=== PATIENT | male | born 1945 | race Caucasian/White ===

== ENCOUNTER 2024-04-19 08:25 | Day surgery (SDC) | payer MEDICARE, BC, SELFPAY ==
[2024-04-08 10:11] VITALS: BMI 31.3
[2024-04-19] VITALS (9 sets, daily range): BP systolic 128–163; BP diastolic 61–84; BMI 30.8
[2024-04-19 09:21] LABS: Glucose - Point of Care 150 mg/dl (70-99)
[2024-04-19 11:39] LABS: ACT-LR - POC 345 Seconds (116-155)
[2024-04-19 11:45] LABS: Glucose - Point of Care 119 mg/dl (70-99)
[2024-04-19 12:04] LABS: ACT-LR - POC 327 Seconds (116-155)
[2024-04-19] MEDS: TYLENOL 650 MG PO (13:50)
[2024-04-19 13:55] LABS: Glucose - Point of Care 138 mg/dl (70-99)
--- NOTE | 2024-04-19 16:02 | W.PN.UPDATE ---
Update Note
Progress Note Update
Pt seen post PFA. Right groin site without ht/bleeding, vascade closure. OOB ambulating, urinating without difficulty. 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 Resume eliquis tonight at usual time. Continue other meds as before. Followup at [facility] as
scheduled. Home today if groin site/tele remain stable.
--- NOTE | 2024-04-19 16:32 | ITS.CL.ABL ---
Tufting Machine Fixer - Ablation
Ablation
Procedure Report:
ELECTROPHYSIOLOGIC STUDY AND POSSIBLE ABLATION
DATE: April 19, 2024
Primary Care Provider: Dr. Erma Mena
INDICATION:
Symptomatic Atrial Fibrillation.
Paroxysmal
HISTORY: See H and P.
Symptomatic AF, poorly controlled with attempted medical therapy.
He has a history of HFrEF and is on guideline directed medical therapy (carvedilol, Entresto, spironolactone) as well as diuretic therapy for volume control, bumetanide.�
He has previously followed elsewhere and was initially treated with a single chamber permanent pacemaker May 2020 then upgraded to to include a right atrial lead as well as a left ventricular lead for cardiac resynchronizatio (Medtronic SLEEPER CUTTER-P)
He reports that initially he experienced severe reduction left ventricular systolic function but with continued medical therapy and upgrade to cardiac resynchronization his ejection fraction has improved to 'near normal'
He has atrial fibrillation, has required cardioversion.� Evaluation of thoracic impedances show that while he was in atrial fibrillation he had low thoracic impedance suggestive of fluid overload but since he is maintained sinus rhythm this has
resolved.
HAS-BLED:
Age
CHADSVASc: 4
CHF
Age
DM
PRESENTING RHYTHM: AV paced
HISTORY: See H and P.
Symptomatic AF, poorly controlled with attempted medical therapy.
ANTICOAGULATION: Apixaban
'TIME-OUT': called and confirmed.
SEDATION/ANESTHESIA: provided via the anesthesia department using general anesthesia.
PROCEDURE:
Ultrasound Guidance performed by az was utilized for femoral venous Vascular Access b/l.
A decapolar CS catheter was placed within the CS for mapping and pacing.
The intracardiac ultrasound catheter was positioned in the RA for continuous intracardiac ultrasound imaging.
Heparin bolus and infusion to target ACT at 300 -350 seconds was administered. Transseptal puncture was performed. This entailed advancing a sheath with dilator into the superior vena cava and withdrawing both (monitoring intracardiac ultrasound,
fluoroscopy and tip pressure) with the tip oriented toward the atrial septum. The fossa ovalis was engaged (indicated by sudden displacement of the sheath tip as well as tenting of the fossa seen on intracardiac ultrasound).
AcQCross transseptal system was used. Left atrial catheter position was confirmed by echocardiographic imaging, pressure monitoring (LA mean pressure 10 mm Hg) and fluoroscopy. The sheath was advanced over the dilator and positioned in the left
atrium.
The multipolar mapping catheter was initially positioned through the transseptal sheath for high density mapping.
Geometry and voltage mapping was performed using the Gandara multipolar grid catheter. Navex was utilized for three-dimensional electroanatomical mapping.
A 3-D map was created using Navex. A 3-D reconstructed CT image was compared to the 3-D Navex map to assist in anatomic evaluation, mapping and ablation.
The Mobovivo Pulse Select PFA catheter and system was used for cardiac ablation. Catheter positioning was guided and confirmed using both I.C.E. and fluoroscopy.
PV isolation approach was used to electrically isolate each PV ostia. Additional energy applications/additional ablation set was required to accomplish both wide area circumferential ablation around each of the pulmonary vein sets and also
electrically isolate the posterior wall of the left atrium.
Remapping with the Gandara multipolar grid catheter found entrance and exit block at the pulmonary veins ostially, and a wide area circumferential fashion and isolation of the posterior wall of the left atrium. There are 4 pulmonary veins, LSPV,
LIPV, RSPV, RIPV.
I.C.E. :
Pre-Ablation Post-Ablation
LVEF: 45-50 % 45-50 %
WMA: none none
Pericardial effusion: none none
Additionally, there is interrogation of the Medtronic SLEEPER CUTTER pacemaker both at the beginning and at the end of the study. At the end of the study once all catheters were removed there is no change in fluoroscopic appearance of the leads and there is
stable normal function of the permanent pacemaker and lead system. Lead impedances for the atrium, right ventricle and left ventricle are 399, 608 and 475 ohms respectively. Pacing threshold in the atrium is 0.5 V at 0.4 ms and in the right
ventricle is 0.875 V at 0.4 ms. Sensed P waves are 1.5 mV and sensed R waves are 11.1 mV. Pacing mode is DDDR 60-130.
COMPLICATIONS:
None
SUMMARY:
- Mapping and ablation to isolate the PVs
- Additional AF ablation set after PVI (WACA and LA post wall ablation).
- 3-D Electroanatomical Mapping
- Intracardiac Ultrasound
-Interrogation and reprogramming of multichamber permanent pacemaker, SLEEPER CUTTER-P (Medtronic)
RECOMMENDATIONS:
- Observe in monitored bed.
- Maintain oral anticoagulation.
- Office visit with me in 3 months.
Copy to:
Dr. Erma Mena
== END 2024-04-19 15:45 | disposition home or self-care (01) ==
LOC: CATH 08:25
PROVIDERS: ATTENDING PHYSICIAN Internal Medicine Cardiovascular Disease
DX: I48.0 Paroxysmal atrial fibrillation (principal); I50.22 Chronic systolic (congestive) heart failure; Z95.0 Presence of cardiac pacemaker; I42.9 Cardiomyopathy, unspecified; I13.0 Hypertensive heart and chronic kidney disease with heart failure and stage 1 through stage 4 chronic kidney disease, or unspecified chronic kidney disease; E78.5 Hyperlipidemia, unspecified; E66.9 Obesity, unspecified; Z68.31 Body mass index [BMI] 31.0-31.9, adult; I35.0 Nonrheumatic aortic (valve) stenosis; E11.22 Type 2 diabetes mellitus with diabetic chronic kidney disease; Z79.84 Long term (current) use of oral hypoglycemic drugs; G47.33 Obstructive sleep apnea (adult) (pediatric); Z85.46 Personal history of malignant neoplasm of prostate; N40.0 Benign prostatic hyperplasia without lower urinary tract symptoms; H91.90 Unspecified hearing loss, unspecified ear; Z79.82 Long term (current) use of aspirin; Z79.899 Other long term (current) drug therapy; Z79.85 Long-term (current) use of injectable non-insulin antidiabetic drugs; I48.92 Unspecified atrial flutter; I49.3 Ventricular premature depolarization
CPT/HCPCS: C1732; C1894; C1733; C1769; C1730; C1892; C1766; 76937; 82962; 85347; 86900; 86901; 93005; 93656; 93657; C1760

== ENCOUNTER → 2025-01-12 10:18 | Outpatient (REF) | payer MEDICARE, BC, SELFPAY ==
[2025-01-12 11:39] LABS: % Basophils 0.5 % (0-2); % Eosinophils 3.2 % (0-6); % Immature Granulocytes 0.4 % (0-0.5); % Lymphocytes 16.3 % (20.5-51.1); % Monocytes 6.2 % (1.7-9.3); % Neutrophils 73.4 % (42.2-75.2); Absolute Eosinophils 0.3 10^3/uL (0-0.7); Absolute Lymphocytes 1.3 10^3/uL (1.2-3.4); Absolute Monocytes 0.5 10^3/uL (0.1-0.6); Absolute Neutrophils 5.8 10^3/uL (1.4-6.5); Hematocrit 45.1 % (39.0-52.0); Hemoglobin 14.8 g/dL (13.0-18.0); Mean Corp Hgb Conc. 32.8 g/dL (33.0-37.0); Mean Corpuscular Hgb 30.3 pg (27.0-31.0); Mean Corpuscular Volume 92.2 fL (80.0-94.0); Mean Platelet Volume 11.4 fL (7.4-10.4); Nucleated Red Blood Cells % 0 % (-); Platelet Count 144 10^3/uL (130-400); Red Blood Cell Count 4.89 10^6/uL (4.70-6.10); Red Cell Dist. Width 13.1 % (11.5-14.5); White Blood Cell Count 7.9 10^3/uL (4.8-10.8)
[2025-01-12 11:44] LABS: INR 1.13; PT 15.1 Sec (11.4-14.6)
[2025-01-12 12:57] LABS: ALT (SGPT) 23 U/L (0-50); AST (SGOT) 22 U/L (17-59); Albumin 4.6 g/dl (3.5-5.0); Alkaline Phosphatase 43 U/L (38-126); Blood Urea Nitrogen 29 mg/dl (9-20); Calcium 8.8 mg/dl (8.4-10.2); Carbon Dioxide 26 mmol/L (22-30); Chloride 104 mmol/L (98-107); Glucose 147 mg/dl (70-99); Magnesium 1.9 mg/dl (1.6-2.3); Potassium 4.2 mmol/L (3.5-5.1); Sodium 139 mmol/L (135-145); Total Bilirubin 2.3 mg/dl (0.2-1.3); Total Protein 6.8 g/dl (6.3-8.2); eGFR 51.13
== END ==
LOC: SDSPAT 10:18
PROVIDERS: ATTENDING PHYSICIAN Internal Medicine Cardiovascular Disease
DX: I48.0 Paroxysmal atrial fibrillation (principal)
CPT/HCPCS: 36415; 80053; 83735; 85025; 85610; 86850; 86900; 86901

== ENCOUNTER 2025-01-20 08:01 | Day surgery (SDC) | payer MEDICARE, BC, SELFPAY ==
[2025-01-12 11:13] VITALS: BMI 31.6
[2025-01-20] VITALS (10 sets, daily range): BP systolic 120–157; BP diastolic 49–78; BMI 30.1
[2025-01-20 08:53] LABS: Glucose - Point of Care 180 mg/dl (70-99)
[2025-01-20] MEDS: TYLENOL 1000 MG PO (09:04)
--- NOTE | 2025-01-20 10:43 | ITS.CL.ABL ---
Math Interventionist - Ablation
Ablation
Procedure Report:
ELECTROPHYSIOLOGIC STUDY AND POSSIBLE ABLATION
DATE: [ ]
Primary Care Provider: Dr. Erma Mena
Heart Failure Specialist: Dr Elma Marroquin
INDICATION:
Symptomatic Atrial Fibrillation.
Paroxysmal
HISTORY: See H and P.
Symptomatic AF, poorly controlled with attempted medical therapy.
He has a history of HFrEF and is on guideline directed medical therapy (carvedilol, Entresto, spironolactone) as well as diuretic therapy for volume control, bumetanide.�
He has previously followed elsewhere and was initially treated with a single chamber permanent pacemaker May 2020 then upgraded to to include a right atrial lead as well as a left ventricular lead for cardiac resynchronization (Medtronic
CAST SHELL GRINDER-P).
He continues to follow closely with Dr. Elma Marroquin, heart failure specialist at [facility].
He reports that initially he experienced severe reduction left ventricular systolic function but with continued medical therapy and upgrade to cardiac resynchronization his ejection fraction has improved to 'near normal'
He underwent EP study and ablation for atrial fibrillation on April 19, 2024 undergoing PVI with pulsed field ablation (Pulse Select).
Initially with significant symptom improvement, but he has recurred with symptomatic AF, although lower burden, and presents now for repeat mapping and ablation.
HAS-BLED: 2
Age
Abn Renal Function
CHADSVASc: 4
CHF
Age
DM
Contributing factors to atrial fibrillation include obesity and suspected sleep apnea although sleep study is pending.
PRESENTING RHYTHM: Atrial tachyarrhythmia at cycle length 330 ms
ANTICOAGULATION: Apixaban 5 mg twice daily
'TIME-OUT': called and confirmed.
SEDATION/ANESTHESIA: provided via the anesthesia department using general anesthesia.
PROCEDURE:
The CAST SHELL GRINDER Medtronic pacemaker was interrogated and found to have normal function. He is pacemaker dependent. The device was reprogrammed to VOO at 60 bpm.
Ultrasound Guidance with real-time visualization of needle insertion and vessel patency performed by me for femoral venous Vascular Access.
Under real-time US guidance, the needle was advanced with negative pressure into the vein. The needle was seen entering the vessel lumen with a good return of dark red flow, the syringe was removed, non-pulsatile, dark red blood low was noted and
the wire was passed without difficulty, then the needle was removed. US confirmed the wire was in the vein, not going into an artery,
Images were taken and saved for the patient's permanent record. Imaging findings typical femoral venous anatomy. Direct visualization of needle puncture into the femoral vein was observed and recorded.
A decapolar CS catheter was placed within the CS and then the RA for mapping and pacing.
Entrainment pacing is consistent with clockwise right atrial flutter utilizing the cavotricuspid isthmus.
The Affera multipolar mapping/ablation Sphere-9 catheter was positioned via the Agilis deflectable sheath. High density electroanatomical three-dimensional mapping is consistent with clockwise typical right atrial flutter. Additionally pacing from
the cavotricuspid isthmus to entrain the tachycardia finds the isthmus within the tachycardia circuit.
A combination of radiofrequency energy (applied closer to the tricuspid valve annulus) and pulsed electric field energy (applied closer to the inferior vena cava) terminated the tachycardia.
Differential pacing demonstrated bidirectional block across the cavotricuspid isthmus.
The intracardiac ultrasound catheter was positioned in the RA for continuous intracardiac ultrasound imaging.
Heparin bolus and infusion to target ACT at 300 -350 seconds was administered. Transseptal puncture was performed. This entailed advancing a sheath with dilator into the superior vena cava and withdrawing both (monitoring intracardiac ultrasound,
fluoroscopy and tip pressure) with the tip oriented toward the atrial septum. The fossa ovalis was engaged (indicated by sudden displacement of the sheath tip as well as tenting of the fossa seen on intracardiac ultrasound).
Transseptal puncture was performed. Left atrial catheter position was confirmed by echocardiographic imaging, pressure monitoring (LA mean pressure 14 mm Hg) and fluoroscopy. The sheath was advanced over the dilator and positioned in the left
atrium.
The Affera multipolar mapping/ablation Sphere-9 catheter was positioned through the transseptal sheath for high density mapping.
Geometry and voltage mapping was performed using the Distraa mapping system for three-dimensional electroanatomical mapping.
Catheter positioning was guided and confirmed using both I.C.E. and fluoroscopy.
High density electroanatomical mapping demonstrated reconnection at the right inferior pulmonary vein towards its inferior and septal quadrants as well as an area of reconnection at the ramses between the left superior and left inferior pulmonary
vein.
Ablation strategy included PVI of the right sided pulmonary veins (ablation at the right inferior pulmonary vein ) and the left sided pulmonary veins (ablation at the ramses between the left superior and left inferior pulmonary veins )
Additional ablation lesions sets were also mapping and ablated with PFA energy applications targeting extra PV contributors to atrial fibrillation:
Targets were identified with electroanatomical voltage mapping finding areas of low voltage and complex fractionated electrograms. These areas can be sites for the formation of rotors which can drive and maintain atrial fibrillation. These areas are
known to be significant contributors to initiation and perpetuation of atrial fibrillation.
Targets for additional PFA ablation lines included:
LA posterior wall
After ablation of the posterior wall, target remained at the anterior roof and the inferior/ floor of the LA and these were also ablated with pulsed electric field energy
The ridge of tissue the left atrial appendage and the left sided pulmonary veins (ligament of Rishi)
The dome/roof of the left atrium adjacent to the right superior pulmonary vein antrum
At the completion of ablation at the PVs and the targeted extra PV sites, post ablation mapping finds that the PVs are electrically isolated with entrance and exit block and the targeted complex fractionated electrograms and areas of low voltage
check the extra PV targets are eliminated rendering the sites no longer able to contribute to atrial fibrillation.
Programmed electrostimulation including burst atrial pacing as well as delivery of atrial decremental extrastimuli down to atrial ERP failed to induce any sustained arrhythmias.
There is no change in the fluoroscopic appearance of the right atrial, right ventricular and coronary sinus pacing leads.
I.C.E. :
Pre-Ablation Post-Ablation
LVEF: 50 % 50 %
WMA: none none
Pericardial effusion: trace trace
COMPLICATIONS:
None
SUMMARY:
- Mapping and ablation to isolate the PVs resulting in electrical isolation of the pulmonary veins
- Additional AF ablation sets X 3 after PVI (LA posterior wall, Ligament of Rishi, left atrial roof) resulting in elimination of the targeted extra PV contributors to atrial fibrillation
- Mapping and ablation of second tachycardia, isthmus dependent right atrial flutter, terminating the tachycardia and rendering it noninducible with programmed electrical stimulation
- 3-D Electroanatomical Mapping
- Intracardiac Ultrasound
- Ultrasound guidance for vascular access
RECOMMENDATIONS:
- Observe in monitored bed.
- Maintain oral anticoagulation.
- Office visit with his scheduled for May 03, 2025
- Continue cardiovascular care with Dr Elma Marroquin
Copy to:
Primary Care Provider: Dr. Erma Mena
Heart Failure Specialist: Dr Elma Marroquin
[2025-01-20 12:18] LABS: ACT-LR - POC > 397 Seconds (116-155)
[2025-01-20 12:18] LABS: ACT-LR - POC > 397 Seconds (116-155)
[2025-01-20 13:24] LABS: Glucose - Point of Care 179 mg/dl (70-99)
[2025-01-20 13:51] LABS: Blood Urea Nitrogen 36 mg/dl (9-20); Calcium 8.4 mg/dl (8.4-10.2); Carbon Dioxide 25 mmol/L (22-30); Chloride 108 mmol/L (98-107); Estimated Creatinine Clearance 53 ml/min; Glucose 185 mg/dl (70-99); Magnesium 1.7 mg/dl (1.6-2.3); Potassium 5.2 mmol/L (3.5-5.1); Sodium 138 mmol/L (135-145); eGFR 55.88
--- NOTE | 2025-01-20 14:46 | W.PN.UPDATE ---
Update Note
Progress Note Update
79 yo WM s/p PVI (same day). He denies cp, sob, cher diet, amb w/o dizziness, EKG AsVpaced, R fem site Vascade closure c/d/i no HT, soft. He will resume Eliquis tonight. Activity restrictions reviewed. He had a mild CARRI after increased bumex for CHF
prior to procedure, Cr 1.4, repeat 1.3 today. We will change his bumex to 1mg mo--fri and recheck BMP in 1 week. He will f/u Dr. Benoit in 3 mo. He is for d/c home after 315 if groin stable.
== END 2025-01-20 15:24 | disposition home or self-care (01) ==
LOC: CATH 08:01
PROVIDERS: Nurse Practitioner Adult Health; ATTENDING PHYSICIAN Internal Medicine Cardiovascular Disease
DX: I48.0 Paroxysmal atrial fibrillation (principal); I48.92 Unspecified atrial flutter; E11.9 Type 2 diabetes mellitus without complications; I50.22 Chronic systolic (congestive) heart failure; Z79.01 Long term (current) use of anticoagulants; Z79.82 Long term (current) use of aspirin; Z79.899 Other long term (current) drug therapy; Z79.84 Long term (current) use of oral hypoglycemic drugs; Z79.85 Long-term (current) use of injectable non-insulin antidiabetic drugs
CPT/HCPCS: C1894; C1733; C1769; C1766; C1730; C1892; 80048; 82962; 83735; 85347; 86850; 86900; 86901; 93005; 93655; 93656; 93657; C1760

== ENCOUNTER → 2025-01-25 14:08 | Outpatient (REF) | payer MEDICARE, BC, SELFPAY | LOC: DHSLP 14:08 | PROVIDERS: ATTENDING PHYSICIAN Internal Medicine Cardiovascular Disease | DX: G47.33 Obstructive sleep apnea (adult) (pediatric) (principal) | CPT/HCPCS: 95806 ==

== ENCOUNTER → 2025-01-31 12:13 | Outpatient (REF) | payer MEDICARE, BC, SELFPAY ==
[2025-01-31 15:10] LABS: Blood Urea Nitrogen 26 mg/dl (9-20); Calcium 9.4 mg/dl (8.4-10.2); Carbon Dioxide 25 mmol/L (22-30); Chloride 107 mmol/L (98-107); Glucose 157 mg/dl (70-99); Magnesium 1.9 mg/dl (1.6-2.3); Potassium 4.6 mmol/L (3.5-5.1); Sodium 141 mmol/L (135-145); eGFR > 60.00
== END ==
LOC: REG 12:13
PROVIDERS: ATTENDING PHYSICIAN Internal Medicine Cardiovascular Disease; FAMILY PHYSICIAN Internal Medicine Endocrinology, Diabetes & Metabolism
DX: Z09 Encounter for follow-up examination after completed treatment for conditions other than malignant neoplasm (principal)
CPT/HCPCS: 36415; 80048; 83735